=== PATIENT | female | born 1970 | race Caucasian/White ===

== ENCOUNTER 2025-05-18 16:01 | Inpatient (IN) | payer MEDICAID ==
[~2025-05-18] VITALS: Ht 157.5 cm; Wt 127.5 kg
[2025-05-18 16:48] LABS: PLATELET COUNT (AUTO) 222 K/uL (150-450); RED BLOOD CELL COUNT(AUTO) 4.95 MIL/uL (4.0-5.2); RED CELL DISTRIBUTION WIDTH 14.9 % (11.5-15.0); WHITE BLOOD COUNT (AUTO) 6.2 K/uL (4.3-11.0)
[2025-05-18 16:53] LABS: CALCIUM, SERUM 9.2 mg/dL (8.5-10.1); CREATININE 0.6 mg/dL (0.6-1.3); SODIUM SERUM 142 mmol/L (136-145); UREA NITROGEN, BLOOD 14 mg/dL (7-18)
[2025-05-18 17:00] LABS: ALCOHOL, BLOOD < 3 mg/dL (0-10); ASPARTATE AMINOTRANSFERASE 23 U/L (15-37); TOTAL PROTEIN, SERUM 7.9 g/dL (6.4-8.2)
[2025-05-18 17:33] LABS: EOSINOPHILS % (MANUAL) 4 % (0-4); LYMPHOCYTES % (MANUAL) 38 % (16-48); MONOCYTES % (MANUAL) 8 % (0-11.0); NEUTROPHILS % (MANUAL) 50 (42-76); PLATELET ESTIMATE ADEQUATE
[2025-05-18] MEDS ORDERED: DIPH25TA62 PO (17:40)
[2025-05-18] MEDS ORDERED: QUET25TA PO (17:40)
[2025-05-18] MEDS ORDERED: ACET325T53 PO (17:40)
[2025-05-18] MEDS ORDERED: FAMO20TA8 PO (17:40)
[2025-05-18] MEDS ORDERED: POLY15DR31 EACHEYE (17:40)
[2025-05-18] MEDS ORDERED: MAGN400O6 PO (17:40)
[2025-05-18] MEDS ORDERED: LOSA50TA39 PO (17:40)
[2025-05-18] MEDS ORDERED: DOCU100C36 PO (17:40)
[2025-05-18] MEDS ORDERED: SPIR25TA PO (17:40)
[2025-05-18] MEDS ORDERED: MULT-213 PO (17:40)
[2025-05-18] MEDS ORDERED: IPRA3AMP23 IH (17:40)
[2025-05-18] MEDS ORDERED: ONDA-97 PO (17:40)
[2025-05-18] MEDS ORDERED: FERR325T24 PO (17:40)
[2025-05-18] MEDS ORDERED: ZINC56.713 TP (17:40)
[2025-05-18] MEDS ORDERED: CHOL200059 PO (17:40)
[2025-05-18] MEDS ORDERED: GEMF600T90 PO (17:40)
[2025-05-18] MEDS ORDERED: GUAI100S9 PO (17:40)
[2025-05-18] MEDS ORDERED: BISA10SU61 RC (17:40)
[2025-05-18] MEDS ORDERED: NA P133E RC (17:40)
[2025-05-18] MEDS ORDERED: PSYL3.4P6 PO (17:40)
[2025-05-18] MEDS ORDERED: HYDR-4075 PO (17:40)
[2025-05-18] MEDS ORDERED: THIO5CAP2 PO (17:40)
[2025-05-18 18:33] LABS: APPEARANCE,URINE CLEAR (CLEAR); BLOOD, URINE NEGATIVE Ery/uL (NEGATIVE); LEUKOCYTE ESTERASE ,URINE 1+ (NEGATIVE); NITRITE, URINE NEGATIVE (NEGATIVE); UGLUCOSE NEGATIVE (NEGATIVE)
[2025-05-18 18:37] LABS: AMPHETAMINE, URINE NEGATIVE (NEGATIVE); BARBITURATE, URINE NEGATIVE (NEGATIVE); BENZODIAZEPINE, URINE NEGATIVE (NEGATIVE); CANNABINOID, URINE NEGATIVE (NEGATIVE); COCCAINE, URINE NEGATIVE (NEGATIVE); OPIATE, URINE NEGATIVE (NEGATIVE)
[2025-05-18 18:58] LABS: ADD URINE CULTURE YES; SQUAMOUS EPITHELIAL CELL,UR 0-2 /HPF (None Seen)
[2025-05-19] MEDS ORDERED: BISACODYL SUPP (10 MG) 10 MG/SUPP.RECT SUPP.RECT RC PRN (00:30)
[2025-05-19 01:15] VITALS: BP 142/82; TEMP 98.3; O2SAT 94
[2025-05-19] MEDS: SPIRONOLACTONE 25 MG TABLET PO SCH (01:15)
[2025-05-19] MEDS: CEPHALEXIN MONOHYDRATE 250 MG/5 ML BOTTLE PO SCH (01:15)
[2025-05-19] MEDS ORDERED: LORAZEPAM 0.5 MG TABLET PO PRN (01:30)
[2025-05-19] MEDS ORDERED: TEMAZEPAM 7.5 MG CAPSULE PO PRN ×2 (01:30)
[2025-05-19] MEDS ORDERED: LORAZEPAM 1 MG TABLET PO PRN (01:30)
[2025-05-19] MEDS ORDERED: MAG HYDROX/AL HYDROX/SIMETH 30 ML UDC PO PRN (01:30)
[2025-05-19] MEDS ORDERED: ACETAMINOPHEN 325 MG TABLET PO PRN ×2 (01:30→11:30)
[2025-05-19] MEDS: BLOOD SUGAR DIAGNOSTIC 1 EACH STRIP IN ONE (01:41)
[2025-05-19] MEDS ORDERED: QUETIAPINE FUMARATE 25 MG TABLET PO SCH (05:00)
[2025-05-19 08:00] VITALS: BP 130/81; TEMP 98.2; O2SAT 90
[2025-05-19] MEDS: FERROUS SULFATE (325 MG) 325 MG/TAB TABLET PO SCH (08:49)
[2025-05-19] MEDS: LOSARTAN POTASSIUM 50 MG TABLET PO SCH (08:50)
[2025-05-19] MEDS: MULTIVIT W/MINERALS 1 TAB TABLET PO SCH (08:50)
[2025-05-19] MEDS: CEPHALEXIN MONOHYDRATE 250 MG CAPSULE PO SCH (08:50)
[2025-05-19] MEDS: FAMOTIDINE (20 MG) 20 MG TABLET PO SCH (08:50)
[2025-05-19] MEDS: CHOLECALCIFEROL 1,000 UNIT TABLET (VIT D3) PO SCH (08:50)
[2025-05-19] MEDS: PSYLLIUM SEED 1 PKT PACKET PO SCH (08:51)
[2025-05-19] MEDS: OLANZAPINE 2.5 MG TABLET PO SCH (11:05)
[2025-05-19] MEDS ORDERED: GUAIFENESIN 300 MG/15 ML UDC PO PRN (11:30)
[2025-05-19] MEDS ORDERED: ZINC OXIDE 56.7 GM TUBE TP PRN (11:30)
[2025-05-19] MEDS ORDERED: diphenhydrAMINE HCL ELIX 25 MG/10 ML UDC PO PRN (11:30)
[2025-05-19] MEDS ORDERED: ARTIFICIAL TEARS 15 ML BOTTLE EACHEYE PRN (11:30)
[2025-05-19] MEDS ORDERED: IPRATROPIUM NEB FS 0.5 MG/2.5 ML AMPUL.NEB NEB PRN (11:30)
[2025-05-19] MEDS ORDERED: NA PHOS,M-B/NA PHOS,DI-BA 1 EA ENEMA RC PRN (11:30)
[2025-05-19] MEDS ORDERED: MAGNESIUM HYDROXIDE 30 ML UDC PO PRN (11:30)
[2025-05-19] MEDS ORDERED: ALBUTEROL FS 2.5 MG/3 ML VIAL.NEB NEB PRN (11:30)
[2025-05-19] MEDS: GEMFIBROZIL 600 MG TABLET PO SCH (17:14)
[2025-05-19 20:26] VITALS: BP 125/83; TEMP 97.8; O2SAT 93
[2025-05-20 08:00] VITALS: BP 114/73; TEMP 98.4; O2SAT 94
[2025-05-20 09:07] LABS: ASPARTATE AMINOTRANSFERASE 18.0 U/L (15-37); CALCIUM, SERUM 9.0 mg/dL (8.5-10.1); CREATININE 0.8 mg/dL (0.6-1.3); LDL 103 mg/dL (0-99); SODIUM SERUM 141.0 mmol/L (136-145); TOTAL PROTEIN, SERUM 8.0 g/dL (6.4-8.2); UREA NITROGEN, BLOOD 19.0 mg/dL (7-18)
[2025-05-20] MEDS: METFORMIN 500 MG TABLET PO SCH (13:37)
[2025-05-20 16:00] VITALS: BP 114/76; TEMP 98.6; O2SAT 98
[2025-05-20] MEDS ORDERED: OLANZAPINE 10 MG VIAL IM PRN (17:00)
[2025-05-20 20:00] VITALS: BP 137/77; TEMP 98.5; O2SAT 95
[2025-05-21] MEDS: MAGNESIUM HYDROXIDE 30 ML UDC PO PRN (01:34)
[2025-05-21 08:00] VITALS: BP 138/74; TEMP 98.6; O2SAT 97
[2025-05-21] MEDS ORDERED: INSULIN REGULAR, HUMAN 100 UNIT/ML 3 ML VIAL SQ PRN (12:00)
[2025-05-21] MEDS: BLOOD SUGAR DIAGNOSTIC 1 EACH STRIP IN SCH (12:00)
[2025-05-21] MEDS ORDERED: DEXTROSE 50%-WATER 50 ML DISP.SYRIN IV PRN (12:00)
[2025-05-21 16:00] VITALS: BP 120/77; TEMP 97.8; O2SAT 96
[2025-05-21] MEDS: OLANZAPINE 5 MG TABLET PO SCH (16:34)
[2025-05-21 20:28] VITALS: BP 120/69; TEMP 97.9; O2SAT 95
[2025-05-22 08:33] VITALS: BP 118/74; TEMP 98.1; O2SAT 96
[2025-05-22 16:00] VITALS: BP 110/64; TEMP 97.9; O2SAT 94
[2025-05-22 20:31] VITALS: BP 126/69; TEMP 98.8; O2SAT 94
[2025-05-23 08:00] VITALS: BP 139/88; TEMP 97.7; O2SAT 96
[2025-05-23 15:40] VITALS: BP 107/68; TEMP 98.6; O2SAT 95
[2025-05-23 20:50] VITALS: BP 119/85; TEMP 97.9; O2SAT 98
[2025-05-24 08:00] VITALS: BP 130/82; TEMP 98.2; O2SAT 99
[2025-05-24] MEDS: DOCUSATE SODIUM 100 MG CAPSULE PO PRN (08:54)
[2025-05-24] MEDS: OLANZAPINE 5 MG TABLET PO SCH (08:55)
[2025-05-24 16:00] VITALS: BP 96/84; TEMP 98.7; O2SAT 98
[2025-05-24 20:43] VITALS: BP 107/66; TEMP 97.5; O2SAT 96
[2025-05-25 08:28] VITALS: BP 110/63; TEMP 97.8; O2SAT 99
[2025-05-25 15:52] VITALS: BP 122/70; TEMP 98.1; O2SAT 96
== END 2025-05-25 17:30 | DRG 750 ==
LOC: ER 16:10 → GPS 23:35
PROVIDERS: ADMIT Registered Nurse; ATTEND Nurse Practitioner Acute Care
DX: F20.9 Schizophrenia, unspecified (principal); F29 Unspecified psychosis not due to a substance or known physiological condition; Z68.43 Body mass index [BMI] 50.0-59.9, adult; E03.9 Hypothyroidism, unspecified; I10 Essential (primary) hypertension; J44.9 Chronic obstructive pulmonary disease, unspecified; E11.65 Type 2 diabetes mellitus with hyperglycemia; E66.01 Morbid (severe) obesity due to excess calories; E78.1 Pure hyperglyceridemia; K21.9 Gastro-esophageal reflux disease without esophagitis; Z73.6 Limitation of activities due to disability
CPT/HCPCS: 36415; 80048-TC; 80053-TC; 80061-TC; 80076-TC; 81001; 85027-TC; 87081-TC; 87086-TC; G0480; J1815